=== PATIENT | male | born 1980 | race Caucasian/White ===

== ENCOUNTER 2024-12-13 11:21 | Emergency (ER) | payer BC, SELFPAY ==
--- OUTSIDE RECORDS SUMMARY | 2024-12-13 11:25 | XMS_ITS | Continuity of Care Document ---
Author Organization [facility] e Address [address] [address] Phone Care Team Providers Care Porter Head Name Role Phone Unavailable Unavailable Unavailable Allergies, Adverse Reactions, Alerts Substance Reaction Status Criticality No Known allergies Medications Medication Instructions Dosage Effective Dates (start - stop) Status Comments Veramyst 27.5 mcg/Actuation Nasal [place] Two sprays in each nostril once daily. - Active multivitamin Cap Take one capsule by mouth daily - Active Biaxin 500 mg Tab Take one tablet twice daily. - No Longer Active Procedures Procedure Date Office/outpatient visit,est, [facility] 2008 Office/outpatient visit,[facility] Advance Directives Directive Yes / No Effective Date File Name Resuscitation Not Answered N/A N/A Life Support Not Answered N/A N/A Intubation Not Answered N/A N/A Antibiotics Not Answered N/A N/A IV Fluid Support Not Answered N/A N/A Tube Feed Not Answered N/A N/A Other Directive N/A N/A WARNING:The information contained in this section is historical and is provided for information only and does not constitute a legal document or any assurance that the information is still accurate. Please verify the information with the lincoln of the legal document before using it for clinical purposes. Encounters Encounter Description Practice Location Reason(s) For Visit Diagnoses Date Provider Providers Copied on Encounter Office/outpa tient visit,est, mod [facility], [address] [place] [address], [id number], tel:[phone] [facility] upper respiratory infection (chief complaint) SINUSITIS MAXILLARYACUT E BRONCHITIS 9 No Information Referring Provider: Maciel Keith, [address] [facility] [address] [facility], [place], [address] . tel:[phone] Office/outpa tient visit,[facility], [address] [facility], [place], [place], [id number], tel:[phone] [facility] diarrhea (chief complaint) [facility]STRO[facility]IT IS [address], [place] [address], [place], [place], [id number], [place]. tel:[phone] Referring Provider: Maciel Keith, [address] [facility], [place], [address] . tel:[phone] Family History Family Member Type Diagnosis Age At Onset Father Problem (finding) Father Problem (finding) myocardial inf arct in 1st degree male relative <55 years (Cause Of ) Paternal grandfather Problem (finding) Diabetes mellit Payers Payer name Insurance type Covered constitution party ID Authoriza tion(s) [facility] [id number] Social History Type Description Quantity Date Captured Comments Alcohol Use Details Caffeine Use Details Tobacco Use Status No Information Smoking Status No Information Sex Male Vital Signs Date / Time: Height Weight BMI Pulse Rate Blood Pressure Temperature Respiratory Rate Body Surface Area Head Circumference Head Circ. Percentile Wt./[place]. Percentile BMI percentile Pulse Ox Inhaled Ox 10:20 AM 256.00 lbs 120/76 mm[Hg] 97.20 F Chief Complaint And Reason For Visit From encounter dated '09/12/2008 10:10'. upper respiratory infection (chief complaint). Description: Onset: 2 week(s) ago. The patient describes the cough as moist, persistent and productive (of brown sputum). It occurs persistently. The problem has become gradually worse. Context: sick family member. Symptoms are aggravated by lying down. There are no relieving factors. Associated symptoms include chills, cough, fatigue, fever, nasal congestion, post-nasal drainage, sinus pressure and sore throat. The patient does not have a history of asthma. Additional information: OTC remedies tried for sinuses w/ no relief. Reason For Referral Reason For Referral No Information History Of Present Illness Encounter Date Complaint History Of Prese nt Illness No Information Functional Status Date Functional Assessmen t No Information Instructions Date Instruction Additional Infor fede Take new medication as prescribe d Assessments Type Assessment Date No Information Patient Care Teams Name Effective Dates (start - stop) Status Members No Information
--- OUTSIDE RECORDS SUMMARY | 2024-12-13 11:28 | XMS_ITS | Continuity of Care Document ---
Author Organization [facility] e Address [address] [address] Phone Care Team Providers Care Wildlife Rehabilitator Name Role Phone Unavailable Unavailable Unavailable Allergies, Adverse Reactions, Alerts Substance Reaction Status Criticality No Known allergies Medications Medication Instructions Dosage Effective Dates (start - stop) Status Comments Veramyst 27.5 mcg/Actuation Nasal [place] Two sprays in each nostril once daily. - Active multivitamin Cap Take one capsule by mouth daily - Active Biaxin 500 mg Tab Take one tablet twice daily. - No Longer Active Procedures Procedure Date Office[place]outpatient visit[place] [facility] [place] Office/outpatient visit,[facility] 2008 Advance Directives Directive Yes / No [...] Copied on Encounter Office/outpa tient visit,est, mod [facility], [address] [place] [address], [id number], tel:[phone] [facility] upper respiratory infection (chief complaint) SINUSITIS MAXILLARYACUT E BRONCHITIS 9 No Information Referring Provider: Maciel Keith, [address] [facility] [address] [facility], [place], [address] . tel:[phone] Office/outpa tient visit,[facility], [address] [facility] [place], [place], [id number], tel:[phone] [facility] diarrhea (chief complaint) GASTROENTERIT IS [address] [facility], [place] [address], [place], [place], [id number], [place]. tel:[phone] Referring Provider: Maciel Keith, [address] [facility], [place], [address] . tel:[phone] Family History Family Member Type Diagnosis Age At Onset Father Problem (finding) Father Problem (finding) myocardial inf arct in 1st degree male relative <55 years (Cause Of ) Paternal grandfather Problem (finding) Diabetes mellit Payers Payer name Insurance type Covered green party ID Authoriza tion(s) [facility] [id number] Social History Type Description Quantity Date Captured [...]
[2024-12-13 11:35] VITALS: BP 103/67; PULSE 76; RESP 18; TEMP 36.5; O2SAT 99
--- NOTE | 2024-12-13 11:39 | ED.SKABFB ---
HPI - Skin/Abscess/Foreign Bdy General Chief complaint: Skin/Abscess/Foreign Body Stated complaint: Rt Foot injury Time Seen by Provider: 12/13/24 11:[address] [facility] accompanied by spouse with complaints of stepping on a nail while having shoes on to the right foot. Not cut to the bottom of right foot. Patient's spouse clean this area and applied a bandage prior to arrival at urgent care. Patient knows he is due for a tetanus vaccination no was not sure if anything else was needed to the cut itself. Denies swelling, significant pain, numbness, tingling, or bruising. Related Data Home Medications ?Medication ?Instructions ?Recorded ?Confirmed ?Last Taken ?Type No Home Medications 12/13/24 12/13/24 Unknown History Allergies Allergy/AdvReac Type Severity Reaction Status Date / Time No Known Allergies Allergy Verified 12/13/24 11:33 Review of Systems Constitutional: Constitutional: Reports as per HPI, Denies chills, Denies fatigue and Denies fever(s) Cardiovascular: Cardiovascular: Reports no additional cardiovascular complaints Respiratory: Respiratory: Reports no additional respiratory complaints Musculoskeletal: Musculoskeletal: Reports as per HPI, Denies arthralgias, Denies joint swelling and Denies muscle cramps Integumentary/Breasts: Skin/Breast: Reports as per HPI Comments: Laceration bottom right foot Neurologic: Reports as per HPI, Denies focal weakness, Denies numbness and Denies weakness Psychiatric: Psychiatric: Reports no additional psychiatric complaints Endocrine: Endocrine: Reports no additional endocrine complaints Hematologic/Lymphatic: Hematologic/Lymphatic: Reports no additional hematologic/lymphatic complaints Allergic/Immunologic: Allergic/Immunologic: Reports no additional allergic/immunologic complaints [facility] Family History Family History (System 06/15/22 @ 11:10 by Griselda Pierce) Other Family history of coronary artery disease Social History Social History (System 06/15/22 @ 11:10 by Griselda Pierce) Smoking status: Never smoker Alcohol intake: current Exam Const: General: healthy appearing and no acute distress; No diaphoretic or ill appearing Nutritional Appearance: well nourished Orientation/consciousness: patient oriented x3 Limitations: no limitations Resp: Effort & Inspection: normal respiratory effort Cardio: Rate: regular rate Skin: General skin exam: normal color Rashes: no rashes Wounds: wounds noted ( small 2 cm laceration to the bottom of right foot. well approximated. ) Neuro: General: patient oriented x3 Speech: normal speech Gait exam (Neuro): Normal gait present Extrem: Right lower extremity: foot Details: normal capillary refill, toes with normal ROM, no edema, laceration (bottom of foot ), vascular exam Details: dorsalis pedis pulse present, posterior tibial pulse present and normal capillary refill and motor-sensory exam Details: two point discrimination normal, light-touch normal and pin-prick normal; no tenderness, no unusual warmth and no ecchymosis Psych: Mental Status: mental status grossly normal Affect: normal affect Attitude: cooperative Course Course Level of Care: Express Care Visit Vital Signs Vital signs: Vital Signs Temperature 97.7 F 12/13/24 11:35 Pulse Rate 76 12/13/24 11:35 Respiratory Rate 18 12/13/24 11:35 Blood Pressure 103/67 12/13/24 11:35 Pulse Oximetry 99 12/13/24 11:35 Oxygen Delivery Room Air 12/13/24 11:35 Temperature 97.7 F 12/13/24 11:35 Pulse Rate 76 12/13/24 11:35 Respiratory Rate 18 12/13/24 11:35 Blood Pressure 103/67 12/13/24 11:35 Pulse Oximetry 99 12/13/24 11:35 Oxygen Delivery Room Air 12/13/24 11:35 Procedures Laceration Laceration 1: Date: 12/13/24 Time: 12:07 Site: lower extremity (foot) Side (If applicable): right Size (cm): 2 Description: linear and clean Depth: simple, single layer Pre-repair: wound explored ====== Skin Level ====== Skin layer closed with: dermabond ====== Subcutaneous Layer ====== ====== Muscle Layer ====== ====== Tendon Layer ====== MDM - Skin/Abscess/Foreign Bdy MDM Narrative Medical decision making narrative: Tdap updated while the office today spoke with patient about wound closure options. Given it is not bleeding and minimally depth closed with Dermabond Discharge instructions reviewed with patient, as well as provided in writing per nursing staff. The instructions also include specific and strict return/GO TO THE ER as well as f/u information. All questions have been answered, and the patient deny any further questions with discharge and discharge plan. Differential Diagnosis Differential diagnosis: Likely cellulitis and other ( laceration, abrasion, puncture) Medical Records Attestation: I reviewed the patient's medical records. Discharge Plan Discharge Clinical Impression: Laceration, Need for [id number] (Tdap) vaccine Patient Disposition: Home Condition: Stable Instructions: Antibiotic Form, Laceration (ED), Skin Adhesive Care (ED) Additional Instructions: Skin adhesive care: -adhesive works like a bandage; do not use antibiotic ointment as it can break down the adhesive -You can shower while the adhesive is on your skin, but do not take a bath or soak or scrub the area for 7-10 days. Dry your skin by patting it gently with a towel. -The adhesive will peel off on its own; usually by 5-10days. If after 10 days, you still have adhesive on you, you can use antibiotic ointment or petroleum jelly to get it off. After you heal, you should protect the scar from the sun. Use sunscreen on the area or wear clothes or a hat that covers the scar. Follow up with your PCP is needed Patient Language: Armenian Prescriptions: No Action No Home Medications Follow-up/Referrals: Yoni Miramontes MD [Primary Care Provider] - Time of Disposition: 12:11
[2024-12-13] MEDS: TETANUS,DIPHTHERIA,AC PERTUSSIS ADULT (0.5 ML) BOOSTRIX IM (11:46)
== END 2024-12-13 12:13 | disposition home or self-care (01) ==
PROVIDERS: Emergency Provider Nurse Practitioner Family; PCP Family Medicine
DX: S91.311A Laceration without foreign body, right foot, initial encounter (principal); W45.0XXA Nail entering through skin, initial encounter; Z23 Encounter for immunization
CPT/HCPCS: 90471; 90715; 99212; G0463